=== PATIENT | female | born 1990 | race Hispanic/Latino ===

== ENCOUNTER 2021-11-30 13:38 | Outpatient (CLI) | payer OTHER | END 2021-11-30 13:39 | disposition home or self-care (01) | LOC: CSHULT 13:38 | PROVIDERS: ATTEND Family Medicine | DX: Z34.82 Encounter for supervision of other normal pregnancy, second trimester (principal); Z3A.22 22 weeks gestation of pregnancy | CPT/HCPCS: 76805 ==

== ENCOUNTER 2022-03-20 20:09 | Inpatient (IN) | payer MEDICAID, OTHER ==
[~2022-03-20 20:09] MED LIST: Bupivacaine/Epinephrine 0.5% 10 ML VIAL ONE
[2022-03-20 20:32] VITALS: BMI 24.0
[2022-03-20] MEDS ORDERED: Methylergonovine 0.2 MG/ML VIAL IM PRN (20:55)
[2022-03-20] MEDS ORDERED: Misoprostol 200 MCG TAB PR PRN (20:55)
[2022-03-20] MEDS ORDERED: Lidocaine 1% (PF) 30 ML VIAL SC PRN (20:55)
[2022-03-20] MEDS ORDERED: Ibuprofen 800 MG TAB PO PRN (20:55)
[2022-03-20] MEDS ORDERED: Carboprost 250 MCG/ML AMP IM PRN (20:55)
[2022-03-20] MEDS ORDERED: hydrALAZINE 20 MG/ML VIAL SLOW IVP PRN (20:55)
[2022-03-20] MEDS ORDERED: Acetaminophen 500 MG TAB PO PRN (20:55)
[2022-03-20] MEDS ORDERED: Promethazine HCl 25 MG/ML VIAL IM PRN ×2 (20:55→21:48)
[2022-03-20] MEDS ORDERED: Ondansetron PF 4 MG/2 ML Vial IVP PRN ×2 (20:55→21:48)
[2022-03-20] MEDS ORDERED: Diphenoxylate HCl/Atropine Tablet PO PRN (20:55)
[2022-03-20] MEDS ORDERED: NS w/ Oxytocin 30 units 500 ML IV SCH ×2 (21:00)
[2022-03-20] MEDS ORDERED: Lactated Ringer's 1,000 ML IV SCH (21:00)
[2022-03-20] MEDS ORDERED: Fentanyl 2 mcg/Bup 0.1% Cadd 100 ML ONE (21:04)
[2022-03-20 21:18] LABS: Hemoglobin 12.9 g/dL (12.0-15.5); Mean Corpuscular HGB CONC 35.3 g/dL (32.0-36.0); Mean Corpuscular Hemoglobin 30.3 pg (27.0-33.0); Mean Corpuscular Volume 85.7 fl (81.6-98.3); Mean Platelet Volume 10.2 fl (7.4-10.4); Platelet Count 319 10x3/uL (150-450); RBC Distribution Width 13.3 % (11.5-14.5); Red Blood Cell (RBC) Count 4.26 10x6/uL (3.90-5.03); White Blood Cell (WBC) Count 11.4 10x3/uL (3.5-10.5)
[2022-03-20 21:42] LABS: SARS-CoV-2 NAA Rapid Test Not Detected (NotDetected)
[2022-03-20] MEDS ORDERED: ePHEDrine Sulfate 50 MG/10 ML VIAL SLOW IVP PRN (21:48)
[2022-03-20] MEDS ORDERED: Lactated Ringer's 500 ML IV PRN (21:48)
[2022-03-20] MEDS ORDERED: Acetaminophen 325 MG TAB PO PRN (21:48)
[2022-03-20] MEDS ORDERED: diphenhydrAMINE 50 MG/ML VIAL IVP PRN (21:48)
[2022-03-20] MEDS ORDERED: Naloxone HCl 0.4 mg/ml Vial IVP PRN ×2 (21:48)
[2022-03-20] MEDS ORDERED: Moisturizing Cream (Eucerin) 113 GM JAR TOP PRN (21:48)
[2022-03-20] MEDS ORDERED: Fentanyl 2 mcg/Bupivacaine 0.1% Cassette 100 ML EPIDURAL SCH (22:00)
[2022-03-20] MEDS ORDERED: Communication Order-Pharmacy FS SCH (22:00)
[2022-03-20 22:54] LABS: Syphilis Antibody Nonreactive (Nonreactive); Syphilis Antibody Index 0.04 S/CO (<1.00 Non-Reactive)
[2022-03-20 22:55] LABS: HBSAg Index 0.16 S/CO (0-0.99); Hep B Surf Ag Non-Reactive S/CO (NonReactive)
[2022-03-21] MEDS ORDERED: hydrALAZINE 20 MG/ML VIAL SLOW IVP PRN (02:05)
[2022-03-21] MEDS ORDERED: Preparation H Ointment 28 GM TUBE PR PRN (02:05)
[2022-03-21] MEDS ORDERED: Benzocaine-Menthol 82.5 ML CAN TOP PRN (02:05)
[2022-03-21] MEDS ORDERED: Boostrix 0.5 ML (Tdap) VIAL (>/=7 yrs of age) IM ONE (02:05)
[2022-03-21] MEDS ORDERED: Milk Of Magnesia 30 ML UDCUP PO PRN (02:05)
[2022-03-21] MEDS ORDERED: Ondansetron PF 4 MG/2 ML Vial IVP PRN (02:05)
[2022-03-21] MEDS ORDERED: diphenhydrAMINE 25 MG CAP PO PRN (02:05)
[2022-03-21] MEDS ORDERED: Bisacodyl 10 MG SUPP PR PRN (02:05)
[2022-03-21] MEDS ORDERED: Lanolin Ointment 7 GM TUBE TOP PRN (02:05)
[2022-03-21] MEDS ORDERED: HYDROcodone/Acetaminophen 5/325 mg Tablet PO PRN (02:05)
[2022-03-21] MEDS: Ibuprofen 800 MG TAB PO SCH ×3 (06:02→21:58)
[2022-03-21] MEDS: Prenatal Vitamin 1 TAB PO SCH (08:17)
[2022-03-21] MEDS: Docusate 100 MG CAP PO SCH ×2 (08:18→21:58)
[2022-03-21] MEDS: Ferrous Sulfate 325 MG TAB PO SCH ×2 (08:18→17:07)
[2022-03-22] MEDS: Ibuprofen 800 MG TAB PO SCH ×2 (05:01→13:29)
[2022-03-22] MEDS: Ferrous Sulfate 325 MG TAB PO SCH (07:55)
[2022-03-22 07:59] VITALS: BP 90/50; TEMP 98.1
[2022-03-22] MEDS: Prenatal Vitamin 1 TAB PO SCH (08:12)
[2022-03-22] MEDS: Docusate 100 MG CAP PO SCH (08:12)
== END 2022-03-22 16:05 | disposition home or self-care (01) | DRG 807 ==
LOC: CSHLD/OP 20:09 → CSHLD 20:55 → CSHPP 03-21 01:40
PROVIDERS: ADMIT Family Medicine; ATTEND Family Medicine
PROC: 10E0XZZ Delivery of Products of Conception, External Approach (ICD-10-PCS; principal; 2022-03-20)
PROC: 10907ZC Drainage of Amniotic Fluid, Therapeutic from Products of Conception, Via Natural or Artificial Opening (ICD-10-PCS; 2022-03-20)
DX: O80 Encounter for full-term uncomplicated delivery (principal); Z37.0 Single live birth; Z20.822 Contact with and (suspected) exposure to COVID-19; Z3A.38 38 weeks gestation of pregnancy; Z90.49 Acquired absence of other specified parts of digestive tract
CPT/HCPCS: 51702; 85027; 86780; 86850; 86900; 86901; 87340; 99285; J3490; U0002

== ENCOUNTER 2024-11-12 09:39 | Outpatient (CLI) | payer OTHER | END 2024-11-12 09:40 | disposition home or self-care (01) | LOC: CSHULT 09:39 | PROVIDERS: ATTEND Family Medicine | DX: O09.522 Supervision of elderly multigravida, second trimester (principal); Z3A.20 20 weeks gestation of pregnancy | CPT/HCPCS: 76805 ==